=== PATIENT | male | born 1975 | race Caucasian/White ===

== ENCOUNTER 2025-04-20 17:21 | Observation (INO) ==
[2025-04-20 17:33] VITALS: TEMP 97.2
[2025-04-20 17:45] LABS: Hematocrit (blood only) 40.2 % (42.0-52.0); Hemoglobin 14.1 g/dl (14.0-18.0); Immature Granulocytes # (auto) 0.04 K/uL (0.01-0.20); Immature Granulocytes % (auto) 0.4 %; Mean Corpuscular Hemoglobin 30.3 pg (25.0-34.0); Mean Corpuscular Volume 86.3 fL (80.0-100.0); Platelet Count 243 K/uL (130-400); RDW Standard Deviation 39.0 fL (36.4-46.3); Red Blood Count 4.66 M/uL (4.70-6.10); White Blood Count 9.96 K/ul (4.8-10.8)
[2025-04-20 18:02] LABS: Alanine Aminotransferase 21.0 U/L (7-52); Albumin Globulin Ratio 1.5 (0.9-2); Alkaline Phosphatase 70.0 U/L (34-104); Anion Gap 8.0 (3-11); Bilirubin,Total 0.4 mg/dl (0.2-1.0); Blood Urea Nitrogen 14.0 mg/dl (6-23); Calcium 8.4 mg/dl (8.6-10.3); Carbon Dioxide 27.0 mmol/L (21-32); Chloride 104.0 mmol/L (98-107); Creatinine Clr Calc Pharmacy 163.7 ml/min; Globulin 2.6 gm/dl (2.5-4.0); Glucose 95.0 mg/dl (70-99(Fasting)); Potassium 3.7 mmol/L (3.5-5.1); Sodium 139.0 mmol/L (136-145); Total Protein 6.5 gm/dl (6.0-8.3)
[2025-04-20] MEDS: OPTIRAY 320 100ml IV ONE (18:07)
--- NOTE | 2025-04-20 18:33 | CT Scan Report ---
Clinical History: Fall. Technique: Axial computed tomography images were obtained of the brain from the vertex to the skull base without intravenous contrast. Findings: There is no sign of intracranial hemorrhage. There is normal rosales-white matter differentiation with no sign of acute or old infarction. No midline shift or other form of herniation is identified. There is no hydrocephalus. No obvious mass lesion is seen on this noncontrast examination. There is mucosal thickening in the sphenoid sinus. The mastoid air cells appear clear Impression: Unremarkable noncontrast CT of the brain Electronically signed by Kirby Adams 04-20-2025 6:33 PM
--- NOTE | 2025-04-20 19:03 | Emergency Department Note ---
Impression & Plan Intractable seizure disorder, Post-ictal confusion ED Provider Note NAME: ROSEANN [id number] LEO AGE: 49 SEX: M : 1975 ARRIVES VIA: Ambulance INFORMANT: Patient, ED PROVIDER(S): Yamilet Florian MD CHIEF COMPLAINT: Seizure HPI: This is a 49-year-old male presenting for seizure. Patient was found seizing at the alf. He was found on his right side incontinent of urine. He had a proxy 7-minute long seizure. He was not given rescue medication. He is on Keppra twice daily. He was seen previously in the ER for seizure as well as previous admissions of the last 2 weeks for current seizures as well. Reports severe head pain at this time. Reports lower back pain as well. ROS: See above HPI for pertinent positives & negatives. A total of 10 systems reviewed and were otherwise negative. PAST MEDICAL HISTORY: See Below PAST SURGICAL HISTORY: See Below FAMILY HISTORY: See Below SOCIAL HISTORY: See Below HOME MEDICATIONS: See Below ALLERGIES: See Below VITALS: See Below PHYSICAL EXAMINATION: General: Confused Head: Normocephalic and atraumatic Eyes: Normal inspection, extraocular muscles intact Ear, nose, throat: Normal external exam Neck: In c-collar Respiratory: lungs clear to auscultation bilaterally Cardiovascular: Regular rate/rhythm, no murmur GI: soft, nontender, no guarding or rebound Extremities: nontender, moves all extremities Neuro: The patient awake and alert, appropriately conversive, no focal deficits, symmetric faces Skin: Warm, dry, and intact MEDICAL DECISION MAKING: This is a 49-year male presenting for seizure. Patient is currently postictal, slow to respond and somewhat confused about current place. He states he was last in the hospital and [facility]. He was seen here 2 days ago. He was increased on his Keppra to 1250 mg twice daily. - Bloodwork is reviewed showing no significant leukocytosis, anemia, electrolyte or creatinine abnormality. Urinalysis negative -CT imaging of the head, C-spine and abdomen pelvis reveals no acute traumatic process does reveal spinal stenosis in the cervical region -Due to patient's postictal period, numerous seizure with the past 2 weeks, will admit to hospital for further workup and treatment of seizures Differential diagnosis: Status epilepticus, seizure, epilepsy, intracranial hemorrhage, cervical spine fracture Independent History obtained from: Jail guards Diagnostics interpreted by me: ECG: ECG independently interpreted by me with normal sinus rhythm, rate of 60, normal axis, normal HI, normal QRS, normal QTc, no ST segment elevations consistent with STEMI criteria Cardiac Monitoring: An order was placed for continuous cardiac monitoring. The monitor shows a rate of 59 with sinus rhythm. 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 Current Living Situation: Other Current Living Situation Comment: [facility] Feels Safe at Home: Yes Allergies Allergies Allergy/AdvReac Type Severity Reaction Status Date / Time No Known Allergies Allergy Verified 04/20/25 20:06 Home Meds Home Medications Medication Instructions Recorded Confirmed acetaminophen 325 mg tablet 650 mg PO TID 04/20/25 04/20/25 (Tylenol) cholecalciferol (vitamin D3) 25 25 mcg PO DAILY 04/20/25 04/20/25 mcg (1,000 unit) capsule (Vitamin D3) ibuprofen 600 mg tablet 600 mg PO TID PRN Pain 04/20/25 04/20/25 levetiracetam 500 mg tablet 500 mg PO BID 04/20/25 04/20/25 (Keppra) levetiracetam 750 mg tablet 750 mg PO BID 04/20/25 04/20/25 (Keppra) prednisone 10 mg tablet 10 mg PO DIRECTED 04/20/25 04/20/25 Results & Data (ED) Vital Signs Vital Signs - 24 hr 04/20/25 17:13 04/20/25 17:28 04/20/25 18:23 Temperature 36.2 C L Temperature Source Axillary Pulse Rate 60 58 L Pulse Rate from SpO2 Sensor Pulse Rhythm Regular Respiratory Rate 12 Respiratory Effort / Characteristics Non-Labored Spontaneous Respiratory Depth Normal Blood Pressure 139/86 Blood Pressure Mean 103 Blood Pressure Position Lying Pulse Oximetry 100 95 Oxygen Delivery Method Room Air Room Air Sepsis Recent Fever Within 48 Hours No Sepsis New/Unexplained Change in Mental Status N/A Sepsis Action Taken by Nursing No Action Required 04/20/25 18:27 04/20/25 18:45 04/20/25 19:00 Temperature Temperature Source Pulse Rate 59 L 60 60 Pulse Rate from SpO2 Sensor 58 L 58 L Pulse Rhythm Respiratory Rate 13 14 18 Respiratory Effort / Characteristics Respiratory Depth Blood Pressure 126/81 130/89 120/81 Blood Pressure Mean 96 102 100 Blood Pressure Position Pulse Oximetry 97 99 99 Oxygen Delivery Method Sepsis Recent Fever Within 48 Hours Sepsis New/Unexplained Change in Mental Status Sepsis Action Taken by Nursing 04/20/25 20:00 Temperature Temperature Source Pulse Rate 52 L Pulse Rate from SpO2 Sensor Pulse Rhythm Respiratory Rate 18 Respiratory Effort / Characteristics Respiratory Depth Blood Pressure 118/81 Blood Pressure Mean 87 Blood Pressure Position Pulse Oximetry 100 Oxygen Delivery Method Sepsis Recent Fever Within 48 Hours Sepsis New/Unexplained Change in Mental Status Sepsis Action Taken by Nursing Laboratory Data 04/20/25 17:33 04/20/25 17:33 Lab Results 04/20/25 04/20/25 04/20/25 Range/Units 17:33 17:40 17:45 WBC 9.96 (4.8-10.8) K/ul RBC 4.66 L (4.70-6.10) M/uL Hgb 14.1 (14.0-18.0) g/dl POC Hgb 13.9 L (14.0-18.0) g/dl Hct 40.2 L (42.0-52.0) % POC Hct 41 L (42-52) % MCV 86.3 (80.0-100.0) fL MCH 30.3 (25.0-34.0) pg MCHC 35.1 (32.0-36.0) g/dL RDW Std Deviation 39.0 (36.4-46.3) fL RDW Coeff of Magaly 12.4 (11.5-14.5) % Plt Count 243 (130-400) K/uL MPV 9.5 (9.4-12.4) fL Immature Gran % (Auto) 0.4 % Neut % (Auto) 67.1 % Lymph % (Auto) 24.2 % Burleigh % (Auto) 6.8 % Eos % (Auto) 0.8 % Baso % (Auto) 0.7 % Neut # (Auto) 6.68 H (1.40-6.50) K/uL Lymph # (Auto) 2.41 (1.20-3.40) K/uL Burleigh # (Auto) 0.68 H (0.11-0.59) K/uL Eos # (Auto) 0.08 (0.00-0.50) K/uL Baso # (Auto) 0.07 (0.00-0.20) K/uL Immature Gran # (Auto) 0.04 (0.01-0.20) K/uL POC Sodium 139 (135-144) mmol/L Sodium 139 (136-145) mmol/L POC Potassium 3.7 (3.3-5.0) mmol/L Potassium 3.7 (3.5-5.1) mmol/L POC Chloride 102 (101-112) mmol/L Chloride 104 (98-107) mmol/L Carbon Dioxide 27 (21-32) mmol/L POC Total CO2 26 (24-31) mmol/L Anion Gap 8 (3-11) POC Anion Gap 16.0 (16-25) mmol/L POC BUN 13 (7-18) mg/dl BUN 14 (6-23) mg/dl Creatinine 0.61 (0.6-1.4) mg/dl POC Creatinine 0.7 (0.6-1.3) mg/dl Est Cr Clr Drug Dosing 163.7 ml/min eGFR 116.29 BUN/Creatinine Ratio 23.0 H (10-20) Glucose 95 (70-99(Fasting)) mg/dl POC Glucose 94 (70-99) mg/dl POC Glucose (other) 95 (70-99) mg/dl Calcium 8.4 L (8.6-10.3) mg/dl POC Ioniz Calcium Bailey 1.12 (1.12-1.32) mmol/l Magnesium 2.0 (1.7-2.4) mg/dl Total Bilirubin 0.4 (0.2-1.0) mg/dl AST 17 (13-39) U/L ALT 21 (7-52) U/L Alkaline Phosphatase 70 (34-104) U/L Total Creatine Kinase 91 (30-223) U/L Total Protein 6.5 (6.0-8.3) gm/dl Albumin 3.9 (3.4-5.0) gm/dl Globulin 2.6 (2.5-4.0) gm/dl Albumin/Globulin Ratio 1.5 (0.9-2) Administered Medications Potassium Chloride/Sodium Chloride (Normal Saline W/20 Meq Kcl) 20 meq in 1,000 mls @ 75 mls/hr IV .[id number] ONE Stop: 04/21/25 09:15 Last Admin: 04/20/25 20:37 Dose: 75 mls/hr Documented By: OLY Discontinued Medications Acetaminophen (Ofirmev) 1,000 mg in 100 mls @ 400 mls/hr IV NOW STA Stop: 04/20/25 19:34 Last Infusion: 04/20/25 20:38 Dose: Infused Documented By: Admin: 04/20/25 19:43 Dose: 400 mls/hr Documented By: OLY Calcium Gluconate () 1,000 mg in 60 mls @ 240 mls/hr IV NOW STA Stop: 04/20/25 21:19 Last Infusion: 04/20/25 22:55 Dose: Infused Documented By: Admin: 04/20/25 21:28 Dose: 240 mls/hr Documented By: OLY Ioversol (Optiray 320 100ml) 92 ml IV ONCE ONE Stop: 04/20/25 18:08 Last Admin: 04/20/25 18:07 Dose: 92 ml Documented By: RAFAEL Ketorolac Tromethamine (Ketorolac Tromethamine 15 Mg/Ml Vial) 15 mg IV NOW ONE Stop: 04/20/25 20:26 Last Admin: 04/20/25 20:37 Dose: 15 mg Documented By: OLY Levetiracetam (Levetiracetam 500 Mg/5 Ml Vial) 1,500 mg IV NOW STA Stop: 04/20/25 21:20 Last Admin: 04/20/25 22:01 Dose: 1,500 mg Documented By: OLY Ondansetron HCl (Ondansetron Inj 2 Mg/Ml 2 Ml Vial) 4 mg IV NOW STA Stop: 04/20/25 19:21 Last Admin: 04/20/25 19:44 Dose: 4 mg Documented By: OLY Oxycodone HCl (Oxycodone Hcl Ir 5 Mg Tab (Immediate Release)) Confirm Administered Dose 5 mg .ROUTE .STK-MED ONE Stop: 04/20/25 21:51 Last Admin: 04/20/25 22:01 Dose: 5 mg Documented By: OLY Imaging Data Radiologist's Impression: Head CT 04/20/25 17:34 Clinical History: Fall. Technique: Axial computed tomography images were obtained of the brain from the vertex to the skull base without intravenous contrast. Findings: There is no sign of intracranial hemorrhage. There is normal rosales-white matter differentiation with no sign of acute or old infarction. No midline shift or other form of herniation is identified. There is no hydrocephalus. No obvious mass lesion is seen on this noncontrast examination. There is mucosal thickening in the sphenoid sinus. The mastoid air cells appear clear Impression: Unremarkable noncontrast CT of the brain Electronically signed by Kirby Adams 04-20-2025 6:33 PM Abdomen/Pelvis CT 04/20/25 17:47 EXAM: CT abd pelvis IV con only CLINICAL HISTORY: lower back pain after fall TECHNIQUE: Contrast-enhanced CT of the abdomen and pelvis was performed, with the following protocol: axial images with, and reconstructed coronal and sagittal images. 92ml Opti 320 Intravenous contrast was administered. One of the following dose reduction techniques was utilized for this exam: Automated exposure control, adjustment of the mA and/or kV according to patient size, and use of iterative reconstruction. COMPARISON: None. FINDINGS: Abdomen: Liver: Normal in size, shape, and density. No focal lesions, cysts, or masses were identified. Hepatic vasculature and biliary ducts are unremarkable. Gallbladder and Biliary System: The gallbladder is normal in size and shape. No wall thickening, pericholecystic fluid, or gallstones were identified. The common bile duct is normal in caliber without dilation. Pancreas: Pancreatic head, body, and tail are visualized and appear normal in size and density. No pancreatic masses or calcifications were noted. The pancreatic duct is not dilated. Spleen: Normal in size, shape, and density. No splenic lesions or masses were identified. Appendix: The appendix is normal in size without alexis appendiceal fat stranding, and without an appendicolith. No evidence of appendiceal abscess or perforation. Kidneys and Adrenal Glands: Both kidneys are normal in size, shape, and position. Cortical thickness is within normal limits. No renal calculi or hydronephrosis. Adrenal glands are unremarkable with no evidence of masses or hyperplasia. Pelvis: Urinary Bladder: Normal in contour and wall thickness. No intraluminal lesions identified. Prostate: Normal in size and contour. No focal lesions or masses identified. Seminal Vesicles: Normal in size and appearance. No abnormalities noted. Rectum and Sigmoid Colon: Normal wall thickness and no evidence of mass. Peritoneal and Retroperitoneal Structures: No free fluid or abnormal fluid collections were identified within the abdomen or pelvis. No lymphadenopathy was noted. Bowel: Increased fecal loading of the rectum. No evidence of bowel obstruction or wall thickening. Bones and Soft Tissues: Healing left 8th, 9th and 10th ribs. Decreased bone density. Mild joint effusion with synovial thickening. Degenerative changes of the spine and sacroiliac joints. Pelvic bones and soft tissues are unremarkable. Small vascular calcification of the bilateral iliac arteries. Circumaortic left renal vein, normal variant. IMPRESSION: 1. No evidence of acute displaced fractures or dislocation. 2. No evidence of acute visceral traumatic injury. 3. Healing left lower rib fractures. 4. Degenerative changes of the spine and sacroiliac joints. 5. Correlate with clinical findings. Electronically signed by Joni Martin 04-20-2025 7:[address] 04/20/25 17:47 Clinical history: Pain after fall Technique: Axial computed tomography images were obtained of the cervical spine without intravenous contrast. Sagittal and coronal reconstructions were obtained Findings: No fracture is identified. No listhesis is seen. No focal osseous lesion is evident. There is atlantoaxial osteoarthritis At C2-3, no disc herniation is identified. There is no spinal stenosis. The neural foramen are patent At C3-4, there is mild spinal stenosis due to a disc bulge and a central disc protrusion. There is left neural foramen narrowing that may affect the left C4 nerve root At C4-5, there is spinal stenosis due to a disc bulge and a left paracentral disc protrusion. There is right greater than left neural foramen narrowing that may affect the right C5 nerve root. At C5-6, there is mild spinal stenosis due to a disc bulge. There is left neural foramen narrowing that may affect the left C6 nerve root At C6-7, there is mild spinal stenosis due to a disc bulge. There is bilateral neural foramen narrowing that may affect the exiting C7 nerve roots At C7-T1, there is mild spinal stenosis due to a disc bulge and a right paracentral disc protrusion. There is bilateral neural foramen narrowing that may affect the exiting C8 nerve roots There is emphysema involving the lung apices. The visualized soft tissues of the neck appear unremarkable. No foreign body is seen Impression: 1. No definite cervical spine fracture 2. Spinal stenosis from C3-4 through C7-T1 3. Left C3-4, right C4-5, left C5-6, and bilateral C6-7 and C7-T1 neural foramen narrowing. This may affect the exiting nerve roots Electronically signed by Kirby Adams 04-20-2025 7:03 PM Discharge Plan Visit Data Chief Complaint: Seizure Stated Complaint: Seizure ED Provider: Yamilet Florian Discharge Problem: Intractable seizure disorder, Post-ictal confusion Patient Disposition: Admitted As Inpatient Condition: Fair Discharge Instructions Interventions: ED Discharge Assessment Last Done: 04/20/25 21:54
--- NOTE | 2025-04-20 19:24 | CT Scan Report ---
EXAM: CT abd pelvis IV con only CLINICAL HISTORY: lower back pain after fall TECHNIQUE: Contrast-enhanced CT of the abdomen and pelvis was performed, with the following protocol: axial images with, and reconstructed coronal and sagittal images. 92ml Opti 320 Intravenous contrast was administered. One of the following dose reduction techniques was utilized for this exam: Automated exposure control, adjustment of the mA and/or kV according to patient size, and use of iterative reconstruction. COMPARISON: None. FINDINGS: Abdomen: Liver: Normal in size, shape, and density. No focal lesions, cysts, or masses were identified. Hepatic vasculature and biliary ducts are unremarkable. Gallbladder and Biliary System: The gallbladder is normal in size and shape. No wall thickening, pericholecystic fluid, or gallstones were identified. The common bile duct is normal in caliber without dilation. Pancreas: Pancreatic head, body, and tail are visualized and appear normal in size and density. No pancreatic masses or calcifications were noted. The pancreatic duct is not dilated. Spleen: Normal in size, shape, and density. No splenic lesions or masses were identified. Appendix: The appendix is normal in size without alexis appendiceal fat stranding, and without an appendicolith. No evidence of appendiceal abscess or perforation. Kidneys and Adrenal Glands: Both kidneys are normal in size, shape, and position. Cortical thickness is within normal limits. No renal calculi or hydronephrosis. Adrenal glands are unremarkable with no evidence of masses or hyperplasia. Pelvis: Urinary Bladder: Normal in contour and wall thickness. No intraluminal lesions identified. Prostate: Normal in size and contour. No focal lesions or masses identified. Seminal Vesicles: Normal in size and appearance. No abnormalities noted. Rectum and Sigmoid Colon: Normal wall thickness and no evidence of mass. Peritoneal and Retroperitoneal Structures: No free fluid or abnormal fluid collections were identified within the abdomen or pelvis. No lymphadenopathy was noted. Bowel: Increased fecal loading of the rectum. No evidence of bowel obstruction or wall thickening. Bones and Soft Tissues: Healing left 8th, 9th and 10th ribs. Decreased bone density. Mild joint effusion with synovial thickening. Degenerative changes of the spine and sacroiliac joints. Pelvic bones and soft tissues are unremarkable. Small vascular calcification of the bilateral iliac arteries. Circumaortic left renal vein, normal variant. IMPRESSION: 1. No evidence of acute displaced fractures or dislocation. 2. No evidence of acute visceral traumatic injury. 3. Healing left lower rib fractures. 4. Degenerative changes of the spine and sacroiliac joints. 5. Correlate with clinical findings. Electronically signed by Joni Martin 04-20-2025 7:24 PM
[2025-04-20] MEDS: ACETAMINOPHEN 1,000 MG/100 ML VIAL IV STA (19:43)
[2025-04-20] MEDS: ONDANSETRON INJ 2 MG/ML 2 ML VIAL IV STA (19:44)
[2025-04-20 20:19] LABS: Magnesium 2.0 mg/dl (1.7-2.4)
[2025-04-20] MEDS: NSS + 20MEQ KCL 20 MEQ/1,000 ML BAG IV ONE (20:37)
[2025-04-20] MEDS: KETOROLAC TROMETHAMINE 15 MG/ML VIAL IV ONE (20:37)
[2025-04-20 20:44] LABS: Creatine Kinase 91.0 U/L (30-223)
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
[2025-04-20] MEDS ORDERED: PROMETHAZINE 6.25 MG/50.25 ML BAG IV PRN (21:21)
[2025-04-20] MEDS: CALCIUM GLUCONATE 1,000 MG/60 ML BAG IV STA (21:28)
[2025-04-20 23:04] LABS: Appearance Urine Clear (Clear); Glucose Urine UA Negative (Negative)
[2025-04-21] MEDS: IBUPROFEN 600 MG TAB PO PRN (04:17)
[2025-04-21 06:30] LABS: Thyroid Stimulating Hormone 5.831 uIu/ml (0.300-4.500)
[2025-04-21] MEDS: ACETAMINOPHEN 325 MG TAB PO SCH (08:26)
[2025-04-21] MEDS: levETIRAcetam 500 MG TAB PO SCH (08:27)
--- NOTE | 2025-04-21 12:01 | Electrocardiogram Report ---
Test Reason : Blood Pressure : */* mmHG Vent. Rate : 60 BPM Atrial Rate : 60 BPM P-R Int : 132 ms QRS Dur : 74 ms QT Int : 442 ms P-R-T Axes : 40 63 64 degrees QTcB Int : 442 ms Normal sinus rhythm Normal ECG When compared with ECG of 18-Apr-2025 16:16, No significant change was found Confirmed by Nirmala Stubbs (Missy) on 04/21/2025 12:01:13 PM Referred By: Confirmed By: Nirmala Stubbs
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
[2025-04-21 15:58] VITALS: O2SAT 96
[2025-04-21 16:01] VITALS: BP 113/77; PULSE 56; RESP 20
== END 2025-04-21 16:30 ==
LOC: ED 17:21 → EDINP 17:21